=== PATIENT | female | born 1985 | race Two or more races ===

== ENCOUNTER 2020-07-18 01:51 | Inpatient (IN) | payer MEDICAID ==
[~2020-07-18] VITALS: Ht 162.6 cm; Wt 75.5 kg
[2020-07-18] MEDS ORDERED: ONDANSETRON HCL 4 MG/2 ML VIAL IV ONE (02:15)
[2020-07-18] MEDS ORDERED: SODIUM CHLORIDE 0.9% 1,000 ML IV ONE ×2 (02:15→03:45)
[2020-07-18 02:38] LABS: Basophils # (auto) 0 10 ^3/uL (0-0.2); Basophils % (auto) 0.2 % (0.0-2.0); Eosinophils # (auto) 0.2 10 ^3/uL (0-0.8); Eosinophils % (auto) 1.3 % (0.0-7.0); Hematocrit 42.5 % (36.0-46.0); Hemoglobin 14.5 g/dL (12.2-16.2); Lymphocytes # (auto) 1.8 10 ^3/uL (0.4-5.4); Lymphocytes % (auto) 9.3 % (10.0-50.0); Mean Corpuscular Hgb Conc. 34.2 g/dL (32.0-36.0); Mean Corpuscular Volume 93.6 fL (80.0-100.0); Monocytes % (auto) 5.3 % (0.0-12.0); Neutrophils # (auto) 16.3 10 ^3/uL (1.6-8.6); Neutrophils % (auto) 83.9 % (37.0-80.0); Platelet Count (auto) 281 10^3/uL (140-450); Red Blood Cells 4.54 10^6/uL (4.0-5.20); Red Cell Distribution Width 12.8 % (11.8-14.3); White Blood Cell 19.4 10^3/uL (4.4-10.8)
[2020-07-18 02:53] LABS: INR 0.98 (0.9-1.15); Partial Thromboplastin Time 22.3 sec (23.0-31.2)
[2020-07-18 02:56] LABS: Albumin 3.5 g/dL (3.4-5.0); BUN/Creatinine Ratio 17.3; Calcium 8.1 mg/dL (8.5-10.1); Magnesium 1.9 mg/dL (1.6-2.6); Potassium 3.4 mmol/L (3.5-5.1)
[2020-07-18 02:59] LABS: Bilirubin, Total 0.6 mg/dL (0.2-1.0); Total Protein 7.7 g/dL (6.4-8.2)
[2020-07-18] MEDS ORDERED: MORPHINE SULFATE 4 MG/ML SYR/VIAL IV ONE ×2 (03:45→08:45)
[2020-07-18] MEDS ORDERED: IOHEXOL 300 MG/ML 100ML BOTTLE IJ ONE (05:51)
[2020-07-18] MEDS ORDERED: VANCOMYCIN 1GM/250ML 250 ML IV ONE (06:00)
[2020-07-18] MEDS ORDERED: cefTRIAXone 1GM/50ML D5W 50 ML IV ONE (06:00)
[2020-07-18] MEDS ORDERED: CYANOCOBALAMIN (B-12) 1000 MCG/1 ML VIAL IM ONE (09:30)
[2020-07-18] MEDS ORDERED: ACETAMINOPHEN 325 MG TAB PO PRN (09:30)
[2020-07-18] MEDS ORDERED: NITROGLYCERIN 0.4 MG SL TAB SL PRN (09:30)
[2020-07-18] MEDS ORDERED: PANTOPRAZOLE 40 MG/10 ML VIAL INJ IV ONE (09:30)
[2020-07-18] MEDS ORDERED: ALUM & MAG HYDROX-SIMETH LIQ(MAALOX) 30 ML PO PRN (09:30)
[2020-07-18] MEDS ORDERED: DOCUSATE SOD 100 MG CAP PO PRN (09:30)
[2020-07-18] MEDS ORDERED: LORazepam 0.5 MG TAB PO PRN (09:30)
[2020-07-18] MEDS ORDERED: methylPREDNISolone SOD SUCC 40 MG/ML VL IV ONE (09:30)
[2020-07-18] MEDS ORDERED: MORPHINE SULF INJ 2 MG/ML SYRINGE 1ML IV PRN (09:30)
[2020-07-18] MEDS ORDERED: HYDROcodone-ACET 5/325MG TAB PO PRN (09:30)
[2020-07-18] MEDS ORDERED: POTASSIUM CHL 20 Meq TABLET PO ONE (10:00)
[2020-07-18] MEDS ORDERED: CYANOCOBALAMIN (B-12) 1000 MCG/1 ML VIAL IM SCH (10:00)
[2020-07-18] MEDS ORDERED: PANTOPRAZOLE 40 MG/10 ML VIAL INJ IV SCH (10:00)
[2020-07-18] MEDS ORDERED: ENOXAPARIN SOD 40 MG/0.4 ML SYRINGE SC SCH (10:00)
[2020-07-18] MEDS ORDERED: POTASSIUM CHL 20 Meq TABLET PO SCH (10:00)
[2020-07-18] MEDS ORDERED: CALCIUM W/VIT D (600MG/400IU) TAB PO ONE (10:00)
[2020-07-18 10:37] LABS: Urine Bacteria NONE SEEN /hpf (None Seen); Urine Blood Negative /uL (Negative); Urine Specific Gravity 1.044 (1.001-1.035); Urine WBC 3 /hpf (0 - 5)
[2020-07-18 10:45] LABS: Cholesterol 140 mg/dL (< 200); HDL Cholesterol 46 mg/dL (40-59); LDL Cholesterol 81 mg/dL (< 100); Triglycerides 195 mg/dL (< 150)
[2020-07-18 10:48] LABS: Alcohol, Urine < 3.0 mg/dL (0-10); Amphetamine Screen, Urine NEGATIVE (NEGATIVE); Barbiturate Scree,Urine NEGATIVE (NEGATIVE); Benzodiazephine Screen, Urine POSITIVE (NEGATIVE); Cannabinoid Screen, Urine NEGATIVE (NEGATIVE); Cocaine Screen, Urine NEGATIVE (NEGATIVE); Phencyclidine Screen, Urine NEGATIVE (NEGATIVE)
--- NOTE | 2020-07-18 10:50 | NUR ---
Telemetry admit from ER GRULLONOMER ABBASI admitted to Telemetry unit after SBAR received. Patient oriented to Abelardo csaillas RN, unit, room, bed, and unit policies regarding patient care and visiting hours. Patient now on continuous telemetry monitoring, tele box # [id number] and telemetry reading on arrival to unit is SR 83. Patient placed on bedside oxygen, weighed by bedscale and encouraged to call if they need something. All questions and concerns addressed, patient verbalized understanding. Note: Patient noted to be aaox4, pleasant and cooperative. No c/o abdominal pain at this time. Admission assessment done and charted. Plan of care, medications, treatments and safety discussed with patient. Will continue to monitor patient.
[2020-07-18 10:56] LABS: Opiate Scree,Urine POSITIVE (NEGATIVE)
[2020-07-18] MEDS: methylPREDNISolone SOD SUCC 40 MG/ML VL IV SCH ×2 (11:23→22:21)
[2020-07-18] MEDS: SODIUM CHLORIDE 0.9% 1,000 ML IV SCH (11:28)
[2020-07-18] MEDS ORDERED: GOLYTELY 4L KIT PO ONE (11:45)
[2020-07-18 12:01] VITALS: BP 102/62
[2020-07-18] MEDS ORDERED: ALPR0.5T PO (12:20)
[2020-07-18] MEDS ORDERED: ALBUAER3 IN (12:20)
[2020-07-18] MEDS ORDERED: BUSP5TAB51 PO (12:20)
[2020-07-18] MEDS ORDERED: DOXE10CA PO (12:20)
[2020-07-18] MEDS: MORPHINE SULF INJ 2 MG/ML SYRINGE 1ML IV PRN ×2 (13:22→22:22)
[2020-07-18] MEDS: AZTREONAM 1GM INJ 1 GM in D5W 5% 50 ML IV SCH ×2 (13:23→22:39)
[2020-07-18] MEDS: metroNIDAZOLE 500MG/100ML 100 ML IV SCH ×2 (14:19→22:21)
[2020-07-18 17:00] VITALS: BP 113/70
[2020-07-18] MEDS: CALCIUM W/VIT D (600MG/400IU) TAB PO SCH (17:55)
--- NOTE | 2020-07-18 19:35 | NUR ---
Opening shift note Assumed care of patient who is A&Ox4, respirations even and non-labored with no s/s of distress at this time. Discussed POC, procedures and preparation for the following day, and consent forms with patient who verbalized understanding. Advised patient to call for assistance. Bed in lowest locked position with 2 side rails up, call light within reach. Will continue to monitor.
[2020-07-18] MEDS: PANTOPRAZOLE 40 MG TAB PO SCH (22:21)
[2020-07-18 22:24] VITALS: BP 116/66
[2020-07-18] MEDS: ONDANSETRON HCL 4 MG/2 ML VIAL IV PRN (22:42)
--- NOTE | 2020-07-18 22:50 | NUR ---
Pain and Nausea Patient c/o 8/10 abdominal pain. Administered 2 mg Morphine and 4 mg Zofran per EMAR. Will continue to monitor.
--- NOTE | 2020-07-18 23:30 | NUR ---
Pain/nausea reassessed Patient stated that she was at a 2/10 for pain and that the nausea had subsided. Patient tolerating well. Will continue to monitor.
[2020-07-19] MEDS: SODIUM CHLORIDE 0.9% 1,000 ML IV SCH ×2 (01:57→18:37)
[2020-07-19] MEDS: AZTREONAM 1GM INJ 1 GM in D5W 5% 50 ML IV SCH (05:04)
[2020-07-19] MEDS: metroNIDAZOLE 500MG/100ML 100 ML IV SCH ×3 (05:04→21:09)
[2020-07-19] MEDS: MORPHINE SULF INJ 2 MG/ML SYRINGE 1ML IV PRN ×3 (05:05→21:09)
[2020-07-19] MEDS: ONDANSETRON HCL 4 MG/2 ML VIAL IV PRN ×3 (05:05→21:09)
--- NOTE | 2020-07-19 05:10 | NUR ---
Pain/Nausea Patient c/o 8/10 abdominal pain. Administered 2 mg Morphine and 4 mg Zofran per EMAR. Will continue to monitor.
[2020-07-19 05:32] VITALS: BP 112/69
[2020-07-19] MEDS ORDERED: GOLYTELY 4L KIT PO ONE (06:00)
--- NOTE | 2020-07-19 06:51 | NUR ---
Preparation for procedure/Pain reassessed Gown, linen, CHG wipes. Patient tolerated well. Currently 2/10 pain and no further nausea.
--- NOTE | 2020-07-19 07:45 | NUR ---
POTASSIUM=3.4, POTASSIUM PO X1 WAS GIVEN ON 07/18/20 REPORTED BY ELECTRICIAN YARD RN.
--- NOTE | 2020-07-19 07:45 | NUR ---
RECEIVED PATIENT ALERT AND ORIENTED X4, NOT IN DISTRESS, CLEAR SOUNDS IN BILATERAL UPPER AND LOWER LUNG SOUNDS, RR=18 SAT=97%, DEEP BREATHING AND COUGHING WAS ENCOURAGED, DEMONSTRATED AND VERBALIZED UNDERSTANDING, DENIED SHORT OF BREATH AND CHEST PAIN AT THIS MOMENT, SR R=94 ON TELE MONITOR, ABDOMEN SOFT WITH ACTIVE BS, KEEP NPO ORDERED, LAST BM=07/17/20 REPORTED, GENERAL SKIN DRY AND INTACT, RADIAL AND PEDAL PULSES PALPABLE, RESTING ON BED, DENIED PAIN, HEAD OF BED ELEVATED, BED ON LOW POSITION, RAILS UP X2, CALL LIGHT ON REACH, PENDING EGD AND COLONOSCOPY, WILL CONTINUE MONITORING.
[2020-07-19] MEDS: CALCIUM W/VIT D (600MG/400IU) TAB PO SCH (08:00)
--- NOTE | 2020-07-19 08:00 | NUR ---
LAB WAS CONTACTED FOR COVID 19 ANTIGEN STAT TEST FOLLOW UP, WAITING FOR THE SAMPLE KIT FROM THE LAB REPORTED, WILL CONTINUE MONITORING.
[2020-07-19 09:00] VITALS: BP 99/69
--- NOTE | 2020-07-19 09:00 | NUR ---
COVID 19 SAMPLE DELIVERED TO THE LAB ORDERED, WAITING FOR THE RESULT, WILL CONTINUE MONITORING.
--- NOTE | 2020-07-19 10:30 | NUR ---
CONSENT SIGNED, CHECK LIST WAS COMPLETED AND ON CHART, T=97.8 RR=18 SAT=97%, P=86 FD=530/72, NOT IN DISTRESS, WENT ON BED TO PRE OP, WILL CONTINUE FOLLOW UP.
[2020-07-19] MEDS ORDERED: LIDOCAINE VISCOUS 2% 15ML UD ONE (10:37)
[2020-07-19] MEDS ORDERED: SODIUM CHLORIDE LOCK 10 ML ONE (10:37)
[2020-07-19] MEDS ORDERED: diphenhdrAMINE HCL 50 MG/1 ML VL ONE (10:37)
[2020-07-19] MEDS: MIDAZOLAM HCL 5 MG/ML-1ML VIAL ONE ×5 (10:40→10:54)
[2020-07-19] MEDS: fentaNYL CITRATE 100 MCG/2 ML VL ONE ×4 (10:40→10:54)
[2020-07-19] MEDS: cefTRIAXone 1GM/50ML D5W 50 ML IV SCH (12:30)
[2020-07-19] MEDS: PANTOPRAZOLE 40 MG TAB PO SCH ×2 (12:31→21:10)
[2020-07-19 13:00] VITALS: BP 111/69
--- NOTE | 2020-07-19 13:00 | NUR ---
CAME BACK FROM GI LAB, ALERT AND ORIENTED, NOT IN DISTRESS, T=98.5 RR=18, SAT=96% P=71 RP=164/67, TOLERATED REGULAR DIET 100% OF PROVIDED LUNCH TRAY, RESTING ON BED AND TALKING ON THE PHONE, WILL CONTINUE MONITORING.
[2020-07-19 17:00] VITALS: BP 96/65
--- NOTE | 2020-07-19 20:03 | NUR ---
REPORT WAS GIVEN TO THE DESKTOP SUPPORT SPECIALIST RN.
[2020-07-19 22:00] VITALS: BP 118/75
[2020-07-20 05:00] VITALS: BP 93/61
[2020-07-20] MEDS: metroNIDAZOLE 500MG/100ML 100 ML IV SCH (05:28)
[2020-07-20 07:01] LABS: Basophils # (auto) 0 10 ^3/uL (0-0.2); Basophils % (auto) 0.3 % (0.0-2.0); Eosinophils # (auto) 0.1 10 ^3/uL (0-0.8); Hematocrit 34.4 % (36.0-46.0); Hemoglobin 11.9 g/dL (12.2-16.2); Lymphocytes # (auto) 3.2 10 ^3/uL (0.4-5.4); Lymphocytes % (auto) 37.2 % (10.0-50.0); Mean Corpuscular Hgb Conc. 34.6 g/dL (32.0-36.0); Mean Corpuscular Volume 95.4 fL (80.0-100.0); Monocytes # (auto) 0.4 10 ^3/uL (0-1.3); Monocytes % (auto) 4.9 % (0.0-12.0); Neutrophils # (auto) 4.9 10 ^3/uL (1.6-8.6); Neutrophils % (auto) 56.6 % (37.0-80.0); Platelet Count (auto) 235 10^3/uL (140-450); Red Blood Cells 3.61 10^6/uL (4.0-5.20); Red Cell Distribution Width 13.4 % (11.8-14.3); White Blood Cell 8.7 10^3/uL (4.4-10.8)
[2020-07-20 07:23] LABS: BUN/Creatinine Ratio 17.4; Calcium 7.4 mg/dL (8.5-10.1); Potassium 3.8 mmol/L (3.5-5.1)
--- NOTE | 2020-07-20 07:45 | NUR ---
RECEIVED PATIENT ALERT AND ORIENTED X4, NOT IN DISTRESS, CLEAR SOUNDS IN BILATERAL UPPER AND LOWER LUNG SOUNDS, RR=18 SAT=96%, DEEP BREATHING AND COUGHING WAS ENCOURAGED, DEMONSTRATED AND VERBALIZED UNDERSTANDING, DENIED SHORT OF BREATH AND CHEST PAIN AT THIS MOMENT, HEART R=78, ABDOMEN SOFT WITH ACTIVE BS, LAST BM=07/19/20 REPORTED, GENERAL SKIN DRY AND INTACT, RADIAL AND PEDAL PULSES PALPABLE, RESTING ON BED, DENIED PAIN, HEAD OF BED ELEVATED, BED ON LOW POSITION, RAILS UP X2, CALL LIGHT ON REACH, WILL CONTINUE MONITORING.
[2020-07-20 09:00] VITALS: BP 108/65
[2020-07-20] MEDS: PANTOPRAZOLE 40 MG TAB PO SCH (09:57)
[2020-07-20] MEDS: SODIUM CHLORIDE 0.9% 1,000 ML IV SCH (09:57)
[2020-07-20] MEDS: cefTRIAXone 1GM/50ML D5W 50 ML IV SCH (09:57)
[2020-07-20] MEDS: ONDANSETRON HCL 4 MG/2 ML VIAL IV PRN (09:58)
[2020-07-20] MEDS: MORPHINE SULF INJ 2 MG/ML SYRINGE 1ML IV PRN (09:58)
[2020-07-20 11:32] VITALS: BP 108/65
--- NOTE | 2020-07-20 13:02 | NUR ---
D/C INSTRUCTIONS AND EDUCATION PROVIDED, VERBALIZED UNDERSTANDING, MEDICATION PRESCRIPTION AND EDUCATION PROVIDED, VERBALIZED UNDERSTANDING, PCP FOLLOW UP ARRANGEMENT WILL BE DONE BY CALLING FROM HOME REPORTED, D/C IV SITE TOLERATED WELL, NOT IN DISTRESS, DENIED PAIN, VS T=98.3 RR=18 SAT=95% P=65 GM=450/65, WC PROVIDED, D/C HOME WALKING, TOOK ALL BELONGINGS AND LEFT NOTHING BEHIND.
== END 2020-07-20 13:00 | disposition home or self-care (01) | DRG 241 ==
LOC: EDBD 01:51 → ER 01:56 → TELE 01:57 → TELE-CENTR 10:50 → CENTRAL 07-20 01:25
PROVIDERS: ADMIT Hospitalist; ATTEND Internal Medicine
PROC: 0DB68ZX Excision of Stomach, Via Natural or Artificial Opening Endoscopic, Diagnostic (ICD-10-PCS; principal; 2020-07-19 10:35)
PROC: 0DBF8ZX Excision of Right Large Intestine, Via Natural or Artificial Opening Endoscopic, Diagnostic (ICD-10-PCS; 2020-07-19 10:35)
DX: K29.70 Gastritis, unspecified, without bleeding (principal); K29.80 Duodenitis without bleeding; E66.9 Obesity, unspecified; E87.6 Hypokalemia; A09 Infectious gastroenteritis and colitis, unspecified; E83.51 Hypocalcemia; R65.10 Systemic inflammatory response syndrome (SIRS) of non-infectious origin without acute organ dysfunction; J45.909 Unspecified asthma, uncomplicated; K57.30 Diverticulosis of large intestine without perforation or abscess without bleeding; K63.5 Polyp of colon; Z20.828 Contact with and (suspected) exposure to other viral communicable diseases; F41.9 Anxiety disorder, unspecified; K44.9 Diaphragmatic hernia without obstruction or gangrene; Z88.0 Allergy status to penicillin; Z88.8 Allergy status to other drugs, medicaments and biological substances; Z79.899 Other long term (current) drug therapy; Z98.51 Tubal ligation status; Z68.28 Body mass index [BMI] 28.0-28.9, adult
CPT/HCPCS: 36415; 43239; 45380; 74177; 80048; 80053; 80061; 80307; 81001; 82150; 83036; 83605; 83690; 83735; 84484; 84702; 85025; 85610; 85730; 87040; 87086; 87426; 96361; 96365; 96367; 96375; 96376; C9113; G0378; J0696; J2250; J2405; J3490; J7060